=== PATIENT | male | born 1955 | race African-American/Black ===

== ENCOUNTER 2021-09-10 14:38 | Inpatient (IN) ==
[2021-09-10] MEDS ORDERED: Nitroglycerin 0.4 MG TAB.SUBL SL PRN (16:57)
[2021-09-10] MEDS ORDERED: Perflutren Lipid Microsphere 1.3 ML in 0.9 % Sodium Chloride 8.7 ML IVP PRN (16:57)
[2021-09-10] MEDS ORDERED: *HR* Enoxaparin 40 MG/0.4 ML SYRINGE SQ ONE (17:59)
[2021-09-10 20:35] LABS: Eosinophils % 3.8 %
[2021-09-10 20:36] LABS: Eosinophils # 0.2 K/mcL (0.0-0.6); Hematocrit 43.2 % (37.5-50.1); Hemoglobin 13.6 g/dL (12.9-16.9); Immature Granulocytes % 0.2 % (0-4); Immature Platelets 18.3 % (1.1-6.1); Lymphocytes # 1.1 K/mcL (0.6-4.6); Lymphocytes % 25.5 %; Mean Corpuscular HGB Conc 31.5 g/dL (31.6-35.5); Mean Corpuscular Hemoglobin 26.2 pg (28.0-33.3); Mean Corpuscular Volume 83.1 fL (83.0-100.0); Monocytes # 0.6 K/mcL (0.0-1.3); Monocytes % 13.7 %; Neutrophils # 2.3 K/mcL (1.6-8.9); Red Cell Distribution Width 15.9 % (11.5-14.5); Segmented Neutrophils % 55.8 %; White Blood Count 4.2 K/mcL (4.3-11.1)
[2021-09-10 20:48] LABS: Alanine Aminotransferase 21 Units/L (7-52); Albumin 3.8 g/dL (3.5-5.7); Albumin/Globulin Ratio 1.3 (1.1-2.2); Alkaline Phosphatase 75 Units/L (34-104); Aspartate Amino Transferase 22 Units/L (13-39); BUN/Creatinine Ratio 10 (6-26); Bilirubin,Total 0.5 mg/dL (0.3-1.0); Blood Urea Nitrogen 14 mg/dL (8-23); Calcium 9.2 mg/dL (8.6-10.3); Carbon Dioxide 28 mEq/L (23-29); Chloride 103 mEq/L (98-107); Glucose 105 mg/dL (70-105); Osmolality,Calculated 291 (280-300); Sodium 140 mEq/L (136-145); Total Protein 6.8 g/dL (6.4-8.9); Troponin I 0.03 ng/mL (< 0.04); eGFR For African Americans > 60 (> 60); eGFR For Non-African Americans 53 (> 60)
[2021-09-10 21:03] LABS: Platelet Count 90 K/mcL (140-400)
[2021-09-10 21:30] LABS: Amphetamine Screen,Urine Negative ng/mL (Cutoff=1000); Barbiturate Screen,Urine Negative ng/mL (Cutoff=200); Benzodiazepines Screen,Urine Negative ng/mL (Cutoff=200); Cannabinoid Screen,Urine Negative ng/mL (Cutoff = 50); Cocaine Screen,Urine Positive ng/mL (Cutoff= 300); Opiate Screen,Urine Negative ng/mL (Cutoff=300); Phencyclidine Screen,Urine Negative ng/mL (Cutoff=25)
[2021-09-11] MEDS: *HR* Enoxaparin 40 MG/0.4 ML SYRINGE SQ SCH (05:48)
[2021-09-11 06:09] LABS: Basophils % 0.9 %; Red Cell Distribution Width 15.9 % (11.5-14.5)
[2021-09-11 06:11] LABS: Eosinophils # 0.1 K/mcL (0.0-0.6); Eosinophils % 3.7 %; Hematocrit 41.3 % (37.5-50.1); Immature Granulocytes % 0.3 % (0-4); Immature Platelets 17.5 % (1.1-6.1); Mean Corpuscular HGB Conc 31.5 g/dL (31.6-35.5); Mean Corpuscular Hemoglobin 26.1 pg (28.0-33.3); Mean Corpuscular Volume 82.8 fL (83.0-100.0); Monocytes # 0.5 K/mcL (0.0-1.3); Monocytes % 16.1 %; Neutrophils # 1.5 K/mcL (1.6-8.9); Red Blood Count 4.99 M/mcL (4.19-5.50); White Blood Count 3.2 K/mcL (4.3-11.1)
[2021-09-11 06:18] LABS: Alanine Aminotransferase 18 Units/L (7-52); Albumin 3.7 g/dL (3.5-5.7); Albumin/Globulin Ratio 1.5 (1.1-2.2); Alkaline Phosphatase 70 Units/L (34-104); Aspartate Amino Transferase 17 Units/L (13-39); BUN/Creatinine Ratio 12 (6-26); Bilirubin,Total 0.4 mg/dL (0.3-1.0); Blood Urea Nitrogen 14 mg/dL (8-23); Calcium 8.8 mg/dL (8.6-10.3); Carbon Dioxide 29 mEq/L (23-29); Chloride 103 mEq/L (98-107); Globulin 2.4 g/dL (2.4-3.5); Glucose 104 mg/dL (70-105); Magnesium 1.9 mg/dL (1.6-2.6); Osmolality,Calculated 287 (280-300); Potassium 3.1 mEq/L (3.5-5.1); Sodium 138 mEq/L (136-145); Total Protein 6.1 g/dL (6.4-8.9); Troponin I 0.03 ng/mL (< 0.04); eGFR For African Americans > 60 (> 60); eGFR For Non-African Americans > 60 (> 60)
[2021-09-11 06:22] LABS: Platelet Count 80 K/mcL (140-400)
[2021-09-11 06:53] LABS: INR 1.3; Prothrombin Time 14.2 Seconds (9.4-12.1)
[2021-09-11] MEDS: Isosorbide MONOnitrate (24 HR) 30 MG TAB.ER.24H PO SCH (08:02)
[2021-09-11] MEDS: amLODIPine 5 MG TABLET PO SCH (08:02)
[2021-09-11] MEDS: Aspirin 81 MG TAB.CHEW PO SCH (08:02)
[2021-09-11] MEDS: Acetaminophen 325 MG TABLET PO PRN (19:23)
[2021-09-11] MEDS ORDERED: *HR* LORazepam 2 MG/ML VIAL IVP ONE (20:11)
[2021-09-12 02:24] LABS: Basophils % 0.9 %; Immature Granulocytes % 0.2 % (0-4); Mean Corpuscular HGB Conc 31.4 g/dL (31.6-35.5); Mean Corpuscular Volume 83.9 fL (83.0-100.0); Red Cell Distribution Width 15.7 % (11.5-14.5)
[2021-09-12 02:27] LABS: Eosinophils # 0.1 K/mcL (0.0-0.6); Eosinophils % 3.1 %; Hematocrit 42.3 % (37.5-50.1); Hemoglobin 13.3 g/dL (12.9-16.9); Immature Platelets 17.9 % (1.1-6.1); Lymphocytes # 1.1 K/mcL (0.6-4.6); Lymphocytes % 26.7 %; Mean Corpuscular Hemoglobin 26.4 pg (28.0-33.3); Monocytes # 0.8 K/mcL (0.0-1.3); Monocytes % 18.6 %; Neutrophils # 2.1 K/mcL (1.6-8.9); Red Blood Count 5.04 M/mcL (4.19-5.50); Segmented Neutrophils % 50.5 %; White Blood Count 4.2 K/mcL (4.3-11.1)
[2021-09-12 02:28] LABS: Platelet Count 85 K/mcL (140-400)
[2021-09-12 02:44] LABS: BUN/Creatinine Ratio 13 (6-26); Blood Urea Nitrogen 14 mg/dL (8-23); Carbon Dioxide 28 mEq/L (23-29); Chloride 103 mEq/L (98-107); Glucose 93 mg/dL (70-105); Osmolality,Calculated 284 (280-300); Potassium 3.3 mEq/L (3.5-5.1); Sodium 137 mEq/L (136-145); eGFR For African Americans > 60 (> 60); eGFR For Non-African Americans > 60 (> 60)
[2021-09-12 03:10] LABS: Platelet Estimate Slight Decrease (Normal); Reactive Lymphocytes Present (Not Present)
[2021-09-12] MEDS: *HR* Enoxaparin 40 MG/0.4 ML SYRINGE SQ SCH (05:15)
[2021-09-12] MEDS ORDERED: Regadenoson 0.4 MG/5 ML SYRINGE IVP ONE (05:55)
[2021-09-12] MEDS: amLODIPine 5 MG TABLET PO SCH (07:43)
[2021-09-12] MEDS: Aspirin 81 MG TAB.CHEW PO SCH (07:43)
[2021-09-12] MEDS ORDERED: lisinopriL 5 MG TABLET PO SCH ×2 (09:45→11:00)
[2021-09-12] MEDS ORDERED: Fluticasone Propionate Nasal 50 MCG/SPRAY BOTTLE NS PRN (10:48)
[2021-09-12] MEDS: Isosorbide MONOnitrate (24 HR) 30 MG TAB.ER.24H PO SCH (11:24)
[2021-09-12] MEDS: Furosemide 20 MG TABLET PO SCH (16:50)
[2021-09-12] MEDS ORDERED: *HR* LORazepam 1 MG TABLET PO ONE (18:48)
[2021-09-12] MEDS: Apixaban 5 MG TABLET PO SCH (21:13)
[2021-09-12] MEDS: traZODone 50 MG TABLET PO SCH (21:13)
[2021-09-13] MEDS: Acetaminophen 325 MG TABLET PO PRN ×3 (04:26→20:12)
[2021-09-13] MEDS: Aspirin 81 MG TAB.CHEW PO SCH (08:20)
[2021-09-13] MEDS: Furosemide 20 MG TABLET PO SCH ×2 (08:21→15:44)
[2021-09-13] MEDS: Apixaban 5 MG TABLET PO SCH ×2 (08:21→20:00)
[2021-09-13] MEDS: amLODIPine 5 MG TABLET PO SCH (08:21)
[2021-09-13] MEDS: Isosorbide MONOnitrate (24 HR) 30 MG TAB.ER.24H PO SCH (08:21)
[2021-09-13] MEDS: Multivit/Ca/Min/Fe/FA 1 TAB TABLET PO SCH (08:21)
[2021-09-13] MEDS: lisinopriL 20 MG TABLET PO SCH (08:21)
[2021-09-13] MEDS: Loratadine 10 MG TABLET PO SCH (08:21)
[2021-09-13] MEDS ORDERED: NON-FORMULARY MEDICATION 1 EACH EACH (Amlodipine Besylate 10 MG Tablet) PO SCH (09:00)
[2021-09-13] MEDS: Ibuprofen 400 MG TABLET PO PRN (15:43)
[2021-09-13] MEDS: traZODone 50 MG TABLET PO SCH (20:01)
[2021-09-14 03:49] LABS: BUN/Creatinine Ratio 12 (6-26); Blood Urea Nitrogen 13 mg/dL (8-23); Carbon Dioxide 26 mEq/L (23-29); Chloride 104 mEq/L (98-107); Glucose 105 mg/dL (70-105); Osmolality,Calculated 286 (280-300); Potassium 3.2 mEq/L (3.5-5.1); Sodium 138 mEq/L (136-145); eGFR For African Americans > 60 (> 60); eGFR For Non-African Americans > 60 (> 60)
[2021-09-14] MEDS: Multivit/Ca/Min/Fe/FA 1 TAB TABLET PO SCH (09:29)
[2021-09-14] MEDS: lisinopriL 20 MG TABLET PO SCH (09:29)
[2021-09-14] MEDS: Isosorbide MONOnitrate (24 HR) 30 MG TAB.ER.24H PO SCH (09:29)
[2021-09-14] MEDS: Apixaban 5 MG TABLET PO SCH ×2 (09:30→19:59)
[2021-09-14] MEDS: Furosemide 20 MG TABLET PO SCH ×2 (09:30→15:45)
[2021-09-14] MEDS: amLODIPine 5 MG TABLET PO SCH (09:30)
[2021-09-14] MEDS: Loratadine 10 MG TABLET PO SCH (09:30)
[2021-09-14] MEDS: Aspirin 81 MG TAB.CHEW PO SCH (09:30)
[2021-09-14] MEDS ORDERED: *HR* LORazepam 1 MG TABLET PO ONE (15:35)
[2021-09-14] MEDS: Ibuprofen 400 MG TABLET PO PRN (15:44)
[2021-09-14] MEDS: traZODone 50 MG TABLET PO SCH (19:59)
[2021-09-15 05:49] LABS: BUN/Creatinine Ratio 12 (6-26); Blood Urea Nitrogen 14 mg/dL (8-23); Carbon Dioxide 26 mEq/L (23-29); Chloride 106 mEq/L (98-107); Glucose 107 mg/dL (70-105); Osmolality,Calculated 287 (280-300); Potassium 3.6 mEq/L (3.5-5.1); Sodium 138 mEq/L (136-145); eGFR For African Americans > 60 (> 60); eGFR For Non-African Americans > 60 (> 60)
[2021-09-15] MEDS: Furosemide 20 MG TABLET PO SCH (10:15)
[2021-09-15] MEDS: Loratadine 10 MG TABLET PO SCH (10:15)
[2021-09-15] MEDS: amLODIPine 5 MG TABLET PO SCH (10:15)
[2021-09-15] MEDS: Apixaban 5 MG TABLET PO SCH (10:16)
[2021-09-15] MEDS: Aspirin 81 MG TAB.CHEW PO SCH (10:16)
[2021-09-15] MEDS: Multivit/Ca/Min/Fe/FA 1 TAB TABLET PO SCH (10:16)
[2021-09-15] MEDS: lisinopriL 20 MG TABLET PO SCH (10:16)
[2021-09-15] MEDS: Isosorbide MONOnitrate (24 HR) 30 MG TAB.ER.24H PO SCH (10:16)
[2021-09-15 14:33] VITALS: BP 137/81; PULSE 72; TEMP 98.5; O2SAT 94
[2021-09-15 14:36] LABS: Influenza A PCR Negative (Negative); Influenza B PCR Negative (Negative); Resp. Syncytial Virus PCR Negative (Negative)
[2021-09-15 14:45] LABS: SARS-CoV-2 by PCR (In House) Negative (Negative)
== END 2021-09-15 15:21 | DRG 305 ==
LOC: 3BNU 14:38 → EMEROOARM 14:38 → SUATTDRO 16:40 → 3BNU 18:56 → SUATTDRO 09-13 13:17
PROVIDERS: ADMIT Family Medicine; ATTEND Internal Medicine